=== PATIENT | male | born 1975 | race Hispanic/Latino ===

== ENCOUNTER 2024-06-29 12:06 | Emergency (ER) | payer SELFPAY ==
[2024-06-29] MEDS ORDERED: NA CHLORIDE 0.9% 1,000 ML ONE (12:39)
[2024-06-29] MEDS ORDERED: MORPHINE 4 MG/ML SYR ONE (12:39)
[2024-06-29] MEDS ORDERED: ONDANSETRON 4 MG/2 ML VIAL ONE (12:39)
[2024-06-29 12:42] LABS: Absolute Basophils 0.1 K/uL (0-0.5); Absolute Eosinophils 0.3 K/uL (0-0.5); Absolute Lymphocytes (CBC) 1.5 K/uL (0.7-4.9); Absolute Monocytes 0.5 K/uL (0.1-1.3); Absolute Neutrophil 7.7 K/uL (1.8-8.0); Basophils % 0.6 % (0-1.3); Eosinophils % 3.2 % (0-4.4); Hematocrit 45.7 % (39.6-49.0); Hemoglobin 16.1 g/dL (13.6-17.9); Lymphocytes % 14.8 % (15.3-44.8); MCH 31.3 pg (27.0-35.0); MCHC 35.2 g/dL (32.0-36.0); MCV 88.9 fL (80-100); MPV 7.9 fL (7.6-11.3); Monocytes % 5.1 % (3.3-12.3); Neutrophils % 76.3 % (41.7-73.7); Platelets 255 thou/uL (152-406); RBC Red Blood Cell Count 5.14 M/uL (4.33-5.43); Red Cell Distribution Width 12.9 % (12.1-15.2)
[2024-06-29] MEDS ORDERED: KETOROLAC 30 MG/ML INJ ONE (12:54)
[2024-06-29 12:57] LABS: Albumin 3.9 g/dL (3.4-5.0); Albumin/Globulin Ratio 1.1 (1.1-1.8); Anion Gap 4.9 mEq/L (5.0-15.0); Bilirubin Total 0.5 mg/dL (0.2-1.0); Globulin 3.7 g/dL (2.3-3.5); Potassium 3.9 mEq/L (3.5-5.1); Protein, Total 7.6 g/dL (6.4-8.2)
[2024-06-29 13:26] LABS: Specific Gravity > 1.030 (1.005-1.030); Sqamous Epithelial None Seen /HPF (None Seen); Urine Bacteria None Seen /HPF (<20); Urine Bilirubin NEGATIVE (Negative); Urine Blood 1+ (Negative); Urine Clarity Clear (Clear); Urine Color Light-Yellow (Yellow); Urine Culture Reflex Order NOT NEEDED; Urine Glucose NEGATIVE (Negative); Urine Ketones NEGATIVE (Negative); Urine Microscopic Reflex YN ORDER UMIC; Urine Mucus Slight /HPF (None Seen); Urine Nitrite NEGATIVE (Negative); Urine Protein TRACE (Negative); Urine Urobilinogen Normal (Normal); Urine WBC <5 /HPF (<5)
--- NOTE | 2024-06-29 14:36 | RAD REPORT ---
EXAMINATION: CT Abdomen Pelvis W Contrast CLINICAL INDICATION: Male, 49 years old. rlq pain. Right upper quadrant pain TECHNIQUE: CT abdomen and pelvis was performed, after the administration of IV contrast, as per [facility] protocol. Axial, sagittal and coronal reconstructions were obtained. One or more of the following dose reduction techniques were used: Automated exposure control, adjustment of the mA and k V according to patient size, and iterative reconstruction. Unless otherwise specified, incidental findings do not require dedicated imaging follow-up. COMPARISON: No prior exam. FINDINGS: LOWER CHEST: The visualized lung bases are clear. LIVER: Normal in size and contour. No suspicious focal lesion. Incidentally noted left lobe 11 mm hyp oattenuating lesion, suggesting a cyst. BILIARY SYSTEM: No suspicious abnormalities. SPLEEN: Normal size. No focal lesion. PANCREAS: No mass, ductal dilation, or rika-pancreatic fluid. ADRENALS: Normal; no mass. KIDNEYS: Normal size and contour. Mild to moderate right hydroureteronephrosis. 3 mm calculus the mos t distal right ureter.. URINARY BLADDER: Unremarkable. GASTROINTESTINAL TRACT: No evidence of free air, significant intra-abdominal free fluid, bowel obstru ction or abscess. APPENDIX: Normal appendix. LYMPH NODES: No lymphadenopathy. MUSCULOSKELETAL: No acute or suspicious osseous abnormality. ADDITIONAL FINDINGS: None. IMPRESSION: Mild right hydroureteronephrosis. 3 mm obstructing calculus at the most distal right ureter. THIS REPORT CONTAINS FINDINGS THAT MAY BE CRITICAL TO PATIENT CARE. The findings were verbally commun icated via telephone to Sreekanth Castillo M.D. on 06/29/2024 2:27 PM.
--- NOTE | 2024-06-29 14:51 | EDPHYS ---
Physician Documentation [facility] Name: Mathew Cason Age: 49 yrs Sex: Male : 1975 Arrival Date: 06/29/2024 Time: 12:06 Bed 25 Private MD: ED Physician Jose Antonio Dozier HPI: 06/29 17:25 This 49 yrs old Male presents to ER via Ambulatory with complaints of rt Abdominal Pain. 17:25 Patient presents to the ED with right-sided abdominal pain rating to the right flank. rt Has associated nausea without vomiting. Denies any acute complaints at this time, symptoms are moderate in severity, no other aggravating alleviating factors.. Historical: - Allergies: 12:16 No Known Allergies; ph - PMHx: 12:16 None; ph - PSHx: 12:16 None; ph - Immunization history:: Adult Immunizations unknown. - Infectious Disease History:: Denies. - Social history:: Smoking status: Patient reports the use of cigarette tobacco products, smokes one-half pack cigarettes per day. ROS: 17:25 Constitutional: Negative for fever, chills, and weight loss, Cardiovascular: Negative rt for chest pain, palpitations, and edema, Respiratory: Negative for shortness of breath, cough, wheezing, and pleuritic chest pain, MS/Extremity: Negative for injury and deformity, Skin: Negative for injury, rash, and discoloration, 17:25 Abdomen/GI: Positive for abdominal pain, nausea, 17:25 Back: Positive for flank pain, Negative for injury or acute deformity, Exam: 17:25 Constitutional: This is a well developed, well nourished patient who is awake, alert, rt and in no acute distress. Chest/axilla: Normal chest wall appearance and motion. Nontender with no deformity. No lesions are appreciated. Cardiovascular: Regular rate and rhythm with a normal S1 and S2. No gallops, murmurs, or rubs. Normal PMI, no JVD. No pulse deficits. Respiratory: Lungs have equal breath sounds bilaterally, clear to auscultation and percussion. No rales, rhonchi or wheezes noted. No increased work of breathing, no retractions or nasal flaring. Skin: Warm, dry with normal turgor. Normal color with no rashes, no lesions, and no evidence of cellulitis. MS/ Extremity: Pulses equal, no cyanosis. Neurovascular intact. Full, normal range of motion. Neuro: Awake and alert, GCS 15, oriented to person, place, time, and situation. Cranial nerves II-XII grossly intact. Motor strength 5/5 in all extremities. Sensory grossly intact. Cerebellar exam normal. Normal gait. 17:25 Abdomen/GI: Tenderness to the right lower quadrant with mild guarding, no rebound, distention, Vital Signs: 12:14 BP 170 / 97; Pulse 73; Resp 18; Temp 98.2; Pulse Ox 98% on R/A; Weight 88.45 kg; Height ph 5 ft. 7 in. ; 13:00 BP 156 / 87; Pulse 60; Resp 16; Pulse Ox 97% ; me1 14:00 BP 128 / 90; Pulse 58; Resp 16; Pulse Ox 94% ; me1 15:00 BP 167 / 93; Pulse 74; Resp 16; Temp 98.4; Pulse Ox 99% ; me1 12:14 Body Mass Index 30.54 (88.45 kg, 170.18 cm) ph MDM: 12:15 Medical Screening Exam initiated rt 17:25 Differential Diagnosis Renal colic, pyelonephritis, cholelithiasis, appendicitis. Data rt reviewed: vital signs, nurses notes, lab test result(s), radiologic studies. I considered the following discharge prescriptions or medication management in the emergency department Medications were administered in the Emergency Department. See MAR. Independent interpretation of the following test(s) in the Emergency Department CT Scan: My interpretation is Ureteral stone seen on my interpretation of the CT scan images. Counseling: I had a detailed discussion with the patient and/or guardian regarding the historical points, exam findings, and any diagnostic results supporting the discharge/admit diagnosis, lab results, radiology results, the need for outpatient follow up, to return to the emergency department if symptoms worsen or persist or if there are any questions or concerns that arise at home. Response to treatment: the patient's symptoms have resolved after treatment, the patient's pain is gone. 06/29 12:20 Order name: CBC with Diff; Complete Time: 12:53 rt 06/29 12:20 Order name: CMP; Complete Time: 13:35 rt 06/29 12:20 Order name: Lipase; Complete Time: 13:35 rt 06/29 12:20 Order name: Urinalysis w/ reflexes; Complete Time: 13:35 rt 06/29 12:20 Order name: CT Abd/Pelvis - IV Contrast Only; Complete Time: 14:39 rt 06/29 12:20 Order name: IV Saline Lock; Complete Time: 12:34 rt 06/29 12:20 Order name: Labs collected and sent; Complete Time: 12:34 rt Administered Medications: 13:07 Drug: NS 0.9% IV 1000 ml IV at 1000 ml once; to be given as a bolus over 60 minutes me1 Route: IV; Rate: 1000 ml; Site: left antecubital; 15:03 Follow up: Response: No adverse reaction; IV Status: Completed infusion; IV Intake: me1 1000ml 13:08 Drug: morphine IVP or IV 4 mg IVP once over 4 mins Route: IVP; Infused Over: 4 mins; me1 Site: left antecubital; 15:04 Follow up: Response: No adverse reaction; Pain is decreased me1 13:08 Drug: Ondansetron IVP 4 mg IVP once; over 2 minutes Route: IVP; Site: left antecubital; me1 15:04 Follow up: Response: No adverse reaction; Nausea is decreased me1 13:08 Drug: Ketorolac IVP 15 mg IVP once Route: IVP; Site: left antecubital; me1 15:04 Follow up: Response: No adverse reaction; Pain is decreased me1 Disposition Summary: 06/29/24 14:50 Discharge Ordered Notes: Location: Home rt Problem: new rt Symptoms: have improved rt Condition: Stable rt Diagnosis - Calculus of ureter rt Followup: rt - With: Zackery Hdz MD - When: 5 - 6 days - Reason: Discharge Instructions: - Discharge Summary Sheet rt - Kidney Stones rt Forms: - Medication Reconciliation Form rt - Antibiotic Education rt - Prescription Opioid Use rt - Patient Portal Instructions rt - Leadership Thank You Letter rt Prescriptions: - Flomax 0.4 mg Oral capsule - take 1 capsule ORAL route every 24 hours; 14 capsule; Refills: 0, Product rt Selection Permitted - ondansetron 4 mg Oral Tablet,disintegrating - take 1 tablet ORAL route every 6 hours as needed for nausea; 15 tablet; rt Refills: 0, Product Selection Permitted - Tylenol-Codeine #3 300mg-30mg Oral tablet - take 1 tablet ORAL route every 6 hours As needed; 15 tablet; Refills: 0, rt Product Selection Permitted Signatures: Dispatcher [employer] Jing Bingham RN RN Jose Antonio Dozier MD MD rt Esperanza Kurtz RN RN me1 Corrections: (The following items were deleted from the chart) 12:21 12:21 CBC+H.LAB.BRZ ordered. EDMS EDMS 12: 12:21 COMPREHENSIVE METABOLIC PANEL+C.LAB.BRZ ordered. EDMS EDMS 12:21 12:21 LIPASE+C.LAB.BRZ ordered. EDMS EDMS 12:21 12:21 Urinalysis+U.LAB.BRZ ordered. EDMS EDMS
--- NOTE | 2024-06-29 14:51 | ER ---
Nurse's Notes [facility] Name: Mathew Cason Age: 49 yrs Sex: Male : 1975 Arrival Date: 06/29/2024 Time: 12:06 Bed 25 Private MD: Diagnosis: Calculus of ureter Presentation: 06/29 12:14 Chief complaint: Patient states: RUQ pain that started this morning, radiates to back, ph denies N/V/D or urinary symptoms. Coronavirus screen: Vaccine status: Patient reports being unvaccinated. Ebola Screen: No symptoms or risks identified at this time. Initial Sepsis Screen: Does the patient meet any 2 criteria? No. Patient's initial sepsis screen is negative. Does the patient have a suspected source of infection? No. Patient's initial sepsis screen is negative. Risk Assessment: Do you want to hurt yourself or someone else? Patient reports no desire to harm self or others. Onset of symptoms was June 29, 2024. 12:14 Method Of Arrival: Ambulatory ph 12:14 Acuity: EDNA 3 ph Triage Assessment: 12:17 General: Appears in no apparent distress. Behavior is calm, cooperative. Pain: ph Complains of pain in right upper quadrant. GI: Reports upper abdominal pain, Patient currently denies nausea, vomiting. Historical: - Allergies: 12:16 No Known Allergies; ph - PMHx: 12:16 None; ph - PSHx: 12:16 None; ph - Immunization history:: Adult Immunizations unknown. - Infectious Disease History:: Denies. - Social history:: Smoking status: Patient reports the use of cigarette tobacco products, smokes one-half pack cigarettes per day. Screenin:15 [facility] ED Fall Risk Assessment (Adult) History of falling in the last 3 months, me1 including since admission No falls in past 3 months (0 pts) Confusion or Disorientation No (0 pts) Intoxicated or Sedated No (0 pts) Impaired Gait No (0 pts) Mobility Assist Device Used No (0 pt) Altered Elimination No (0 pt) Score/Fall Risk Level 0 - 2 = Low Risk Maintained a safe environment, Provided non-skid footwear, Hourly rounding (assess needs \T\ fall precautionary measures) done. Abuse screen: Denies threats or abuse. Nutritional screening: No deficits noted. Tuberculosis screening: No symptoms or risk factors identified. Assessment: 13:15 General: Appears uncomfortable, well groomed, well developed, well nourished, Behavior me1 is calm, cooperative, appropriate for age, Reports RUQ pain that started this morning, radiates to back, denies N/V/D or urinary symptoms. Pain: Complains of pain in right upper quadrant Pain radiates to back Pain currently is 8 out of 10 on a pain scale. Quality of pain is described as sharp, Pain began suddenly, Is continuous. Neuro: Level of Consciousness is awake, alert, obeys commands, Oriented to person, place, time, situation, Appropriate for age. Cardiovascular: Patient's skin is warm and dry. Respiratory: Airway is patent Respiratory effort is even, unlabored, Respiratory pattern is regular, symmetrical. GI: Bowel sounds present X 4 quads. Abd is soft X 4 quads Patient currently denies diarrhea, nausea, vomiting. : Denies burning with urination, urinary frequency. EENT: No signs and/or symptoms were reported regarding the EENT system. Derm: Skin is intact, is healthy with good turgor, Skin is pink, warm \T\ dry. Musculoskeletal: No signs and/or symptoms reported regarding the musculoskeletal system. Vital Signs: 12:14 BP 170 / 97; Pulse 73; Resp 18; Temp 98.2; Pulse Ox 98% on R/A; Weight 88.45 kg; Height ph 5 ft. 7 in. ; 13:00 BP 156 / 87; Pulse 60; Resp 16; Pulse Ox 97% ; me1 14:00 BP 128 / 90; Pulse 58; Resp 16; Pulse Ox 94% ; me1 15:00 BP 167 / 93; Pulse 74; Resp 16; Temp 98.4; Pulse Ox 99% ; me1 12:14 Body Mass Index 30.54 (88.45 kg, 170.18 cm) ph ED Course: 12:10 Patient arrived in ED. mr 12:13 Jose Antonio Dozier MD is Attending Physician. rt 12:16 Triage completed. ph 12:16 Arm band placed on Patient placed in an exam room. ph 12:25 Esperanza Kurtz, MOLLY is Primary Nurse. me1 12:28 Radiology exam delayed due to lab results not completed at this time. (BUN/Creatinine) nj IV insertion attempt and/or patient not having appropriate IV at this time. 12:34 CBC with Diff Sent. me1 12:34 CMP Sent. me1 12:34 Lipase Sent. me1 12:34 Initial lab(s) drawn, by me, sent to lab. Inserted saline lock: 22 gauge in left me1 antecubital area, using aseptic technique. 12:50 CT Abd/Pelvis - IV Contrast Only In Process Unspecified. EDMS 13:15 Patient has correct armband on for positive identification. Bed in low position. Call me1 light in reach. Side rails up X2. Provided Education on: POC. Verbalized understanding.. Client placed on continuous cardiac and pulse oximetry monitoring. NIBP monitoring applied. Pulse ox on. NIBP on. 13:15 No provider procedures requiring assistance completed. me1 13:15 Urine collected: clean catch specimen, clear. me1 14:50 Zackery Hdz MD is Referral Physician. rt 15:11 IV discontinued, intact, bleeding controlled, No redness/swelling at site. Pressure me1 dressing applied. Administered Medications: 13:07 Drug: NS 0.9% IV 1000 ml IV at 1000 ml once; to be given as a bolus over 60 minutes me1 Route: IV; Rate: 1000 ml; Site: left antecubital; 15:03 Follow up: Response: No adverse reaction; IV Status: Completed infusion; IV Intake: me1 1000ml 13:08 Drug: morphine IVP or IV 4 mg IVP once over 4 mins Route: IVP; Infused Over: 4 mins; me1 Site: left antecubital; 15:04 Follow up: Response: No adverse reaction; Pain is decreased me1 13:08 Drug: Ondansetron IVP 4 mg IVP once; over 2 minutes Route: IVP; Site: left antecubital; me1 15:04 Follow up: Response: No adverse reaction; Nausea is decreased me1 13:08 Drug: Ketorolac IVP 15 mg IVP once Route: IVP; Site: left antecubital; me1 15:04 Follow up: Response: No adverse reaction; Pain is decreased me1 Medication: 13:15 VIS not applicable for this client. me1 Intake: 15:03 IV: 1000ml; Total: 1000ml. me1 Outcome: 14:50 Discharge ordered by . rt 15:11 Discharged to home ambulatory, me1 15:11 Condition: stable 15:11 Discharge instructions given to patient, Instructed on discharge instructions, follow up and referral plans. medication usage, Demonstrated understanding of instructions, follow-up care, medications, Prescriptions given X 3, 15:11 Patient left the ED. me1 Signatures: Dispatcher [employer] EDSD Kane Merissa, Reg Reg mr WardJing RN RN ph Zen, Jose Antonio Russell MD MD rt Esperanza Kurtz RN RN me1 Corrections: (The following items were deleted from the chart) 13:15 12:14 Chief complaint: Patient states: RUQ pain that started this morning, radiates to me1 back, denies N/V/D or urinary symptoms ph
[2024-06-29 15:57] VITALS: BP 167/93; TEMP 98.4; O2SAT 99
== END 2024-06-29 15:11 | disposition home or self-care (01) ==
LOC: ER 12:06
DX: N20.1 Calculus of ureter (principal)
CPT/HCPCS: 36415; 74177; 80053; 81001; 82565; 83690; 85025; 96361; 96374; 96375; 99284; J2405; J7030; Q9967